=== PATIENT | male | born 1975 | race African-American/Black ===

== ENCOUNTER 2019-08-02 03:30 | Emergency (ER) | payer OTHER ==
[~2019-08-02] VITALS: Ht 172.7 cm; Wt 106.6 kg
[2019-08-02 04:12] LABS: BASOPHILS 0.6 % (0.0-2.0); EOSINOPHILS 1.6 % (0.0-3.0); HEMOGLOBIN 15.1 gm/dL (14.0-18.0); LYMPHOCYTES 30.8 % (24.0-44.0); MCH 30.6 pg (26.0-34.0); MCHC 33.6 g/dL (28.0-37.0); MCV 91.1 fL (80.0-100.0); MONOCYTES 10.4 % (1.0-8.0); PLATELET COUNT 290 thou/uL (150-400); POLYS 56.6 % (36.0-66.0); RBC 4.94 mil/uL (4.50-6.00); RDW 13.9 % (10.5-14.5)
[2019-08-02 04:19] LABS: ANION GAP 9 mmol/L (7-16); BUN 11 mg/dL (7-18); CHLORIDE 100 mmol/L (98-107); CO2 25 mmol/L (21-32); CREATININE 1.3 mg/dL (0.7-1.3); GLUCOSE 126 mg/dL (74-106); POTASSIUM 3.6 mmol/L (3.5-5.1); SODIUM 134 mmol/L (136-145)
[2019-08-02 04:28] LABS: ALBUMIN 3.9 g/dL (3.4-5.0); SGOT 21 U/L (15-37); SGPT 30 U/L (30-65); TOTAL BILIRUBIN 0.8 mg/dL (<0.1-1.0); TOTAL PROTEIN 8.4 g/dL (6.4-8.2); TROPONIN-I <0.06 ng/mL (<0.06)
--- NOTE | 2019-08-02 08:09 | EKG ---
[facility] [place] [address] ELECTROCARDIOGRAM REPORT Name: MALDONADO MARQUIS Room #: REG RENEE Engel#: [id number] Admission: 08/02/19 Attend Phys: Discharge: Date of : 71 Report #: [id number] THIS REPORT FOR: //name// [facility] ED Test Date: 2019-08-02 Test Time: 03:53:59 Pat Name: MALDONADO MARQUIS Department: Room: Gender: M Managing Member: [place] : 1975 Requested By: Kianna Ayers Order Number: [id number] MD: Sergei Potter Measurements Intervals [place] Rate: 90 P: 64 [place]: 143 QRS: 50 QRSD: 95 T: 53 QT: 358 QTc: 438 Interpretive Statements Sinus rhythm Probable left atrial enlargement RSR' in V1 or V2, probably normal variant ST elev, probable normal early repol pattern No previous ECG available for comparison Electronically Signed On 08-02-2019 8:09:06 CDT by Sergei Potter [email or web address] <ELECTRONICALLY SIGNED> By: Sergei Potter MD 08/02/19 [id number] 2 Sergei Potter MD /LUIS
[2019-08-02 08:24] VITALS: BP 132/74
== END 2019-08-02 08:01 | disposition home or self-care (01) ==
LOC: ER 03:30
PROVIDERS: Student in an Organized Health Care Education/Training Program
DX: R07.89 Other chest pain (principal); R55 Syncope and collapse

== ENCOUNTER 2019-08-04 02:35 | Emergency (ER) | payer OTHER ==
[~2019-08-04] VITALS: Ht 172.7 cm; Wt 106.6 kg
[2019-08-04] MEDS ORDERED: BACTRIM DS TAB1 EAC1 PO (02:45)
[2019-08-04 04:26] LABS: ABSOLUTE NEUTROPHILS 4.1 thou/uL (1.4-8.2); BASOPHILS 0.7 % (0.0-2.0); EOSINOPHILS 2.3 % (0.0-3.0); HEMATOCRIT 44.4 % (42.0-52.0); HEMOGLOBIN 15.3 gm/dL (14.0-18.0); LYMPHOCYTES 34.5 % (24.0-44.0); MCHC 34.4 g/dL (28.0-37.0); MCV 90.3 fL (80.0-100.0); MONOCYTES 10.2 % (1.0-8.0); PLATELET COUNT 321 thou/uL (150-400); POLYS 52.3 % (36.0-66.0); RBC 4.92 mil/uL (4.50-6.00); RDW 13.8 % (10.5-14.5); WBC 7.8 thou/uL (4.0-11.0)
[2019-08-04 04:45] LABS: ANION GAP 12 mmol/L (7-16); BUN 20 mg/dL (7-18); CALCIUM 8.9 mg/dL (8.5-10.1); CHLORIDE 97 mmol/L (98-107); CO2 24 mmol/L (21-32); CREATININE 1.6 mg/dL (0.7-1.3); GLUCOSE 118 mg/dL (74-106); SODIUM 133 mmol/L (136-145)
[2019-08-04] MEDS ORDERED: METHOCARBAMOL500 M2 PO (04:54)
[2019-08-04 04:57] LABS: AMP/METHAMP Negative (Negative); BARBITURATES Negative (Negative); BENZODIAZEPINES Negative (Negative); COCAINE Negative (Negative); METHADONE Negative (Negative); OPIATES Negative (Negative); PCP Negative (Negative)
[2019-08-04 04:58] LABS: ALBUMIN 4.2 g/dL (3.4-5.0); MAGNESIUM 2.2 mg/dL (1.8-2.4); PHOSPHORUS 3.5 mg/dL (2.5-4.9); SGOT 38 U/L (15-37); SGPT 34 U/L (30-65); TOTAL BILIRUBIN 0.9 mg/dL (<0.1-1.0); TOTAL PROTEIN 8.6 g/dL (6.4-8.2); TROPONIN-I <0.06 ng/mL (<0.06)
[2019-08-04] MEDS ORDERED: ATIVAN0.5 M1 PO (05:11)
[2019-08-04 06:13] VITALS: BP 116/77
--- NOTE | 2019-08-06 11:13 | EKG ---
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: [facility] : 1975 Requested By: Louis Rodriguez Order Number: [id number] MD: Sergei Potter Measurements Intervals [place] Rate: 85 P: 62 NM: 132 QRS: 11 QRSD: 87 T: 23 QT: 374 QTc: 445 Interpretive Statements Sinus rhythm Probable left atrial enlargement RSR' in V1 or V2, probably normal variant Compared to ECG 08/02/2019 03:53:59 ST (T wave) deviation no longer present Electronically Signed On 08-06-2019 11:13:26 [employer] by Sergei Potter [email or web address] <ELECTRONICALLY SIGNED> By: Sergei Potter MD 08/06/19 1113 7 Sergei Potter MD /LUIS
== END 2019-08-04 06:10 | disposition home or self-care (01) ==
LOC: ER 02:35
PROVIDERS: Emergency Medicine
DX: M62.838 Other muscle spasm (principal); F41.9 Anxiety disorder, unspecified; R74.8 Abnormal levels of other serum enzymes; R79.89 Other specified abnormal findings of blood chemistry